=== PATIENT | male | born 1970 | race Caucasian/White ===

== ENCOUNTER 2016-12-13 09:01 | Inpatient (IN) | payer MEDICAID ==
[~2016-12-13] VITALS: Ht 177.8 cm; Wt 87.3 kg
[2016-12-13 10:42] LABS: BASOPHILS # (AUTO) 0.03 K/uL (0.00-0.20); BASOPHILS % (AUTO) 0.5 % (0.0-2.0); EOSINOPHILS # (AUTO) 0.82 K/uL (0.00-0.70); EOSINOPHILS % (AUTO) 11.49 % (1.0-6.0); HEMOGLOBIN 13.7 g/dL (13.5-17.5); LYMPHOCYTES # (AUTO) 2.3 K/uL (1.0-4.8); MEAN CORPUSCULAR HGB CONC 33.5 G/dL (31.0-37.0); MEAN CORPUSCULAR VOLUME 93 fL (80-100); MONOCYTES # (AUTO) 0.8 K/uL (0.1-1.0); MONOCYTES % (AUTO) 11.5 % (2.0-9.0); NEUTROPHILS # (AUTO) 3.2 K/uL (1.8-7.7); NEUTROPHILS % (AUTO) 44.6 % (40.0-70.0); PLATELET COUNT (AUTO) 191 K/uL (150-450); RED BLOOD CELL COUNT(AUTO) 4.43 MIL/uL (4.50-5.90); WHITE BLOOD COUNT (AUTO) 7.1 K/uL (4.5-11.0)
[2016-12-13 10:52] LABS: ANION GAP 8 mmol/L (8-16); CALCIUM, TOTAL 8.1 mg/dL (8.8-10.5); CARBON DIOXIDE 28 mmol/L (22-29); CHLORIDE 105 mmol/L (98-107); CREATININE 1.04 mg/dL (0.60-1.30); GLOMERULAR FILTR. RATE CALC > 60 mL/min (>60); POTASSIUM 3.3 mmol/L (3.5-5.1); SODIUM SERUM 141 mmol/L (136-145); UREA NITROGEN, BLOOD 16 mg/dL (7-18)
[2016-12-13 10:54] LABS: PROTHROMBIN TIME 10.6 SEC (9.4-11.6)
[2016-12-13 11:17] LABS: ALANINE AMINOTRANSFERASE 16 U/L (12-78); ALBUMIN 3.5 g/dL (3.4-5.0); ASPARTATE AMINOTRANSFERASE 19 U/L (15-37); BILIRUBIN,TOTAL 0.4 mg/dL (0.1-1.0); CREATINE KINASE MB 3.9 ng/mL (0-5); CREATINE KINASE, TOTAL 326 U/L (39-308); TOTAL PROTEIN, SERUM 6.8 g/dL (6.4-8.2)
[2016-12-13] MEDS ORDERED: IOVERSOL 350 MG/ML 100 ML VIAL ONE (12:02)
[2016-12-13] MEDS ORDERED: SODIUM CHLORIDE 0.9% 100 ML ONE (12:02)
[2016-12-13] MEDS ORDERED: ACETAMINOPHEN 325 MG TABLET PO PRN ×2 (14:45→21:15)
[2016-12-13] MEDS ORDERED: 0.9% SODIUM CHLORIDE 10 ML SYRINGE IVP PRN (14:45)
[2016-12-13] MEDS ORDERED: ONDANSETRON HCL 4 MG/2 ML VIAL IVP PRN (14:45)
[2016-12-13 17:17] VITALS: BP 121/74
[2016-12-13 17:47] LABS: GLUCOSE,POINT OF CARE 92 MG/DL (70-110)
[2016-12-13 19:18] VITALS: BP 125/74
[2016-12-13] MEDS ORDERED: SIMVASTATIN 20 MG TABLET PO SCH (21:15)
[2016-12-13] MEDS ORDERED: MAGNESIUM HYDROXIDE SUSPENSION 30 ML UDCUP PO PRN (21:15)
[2016-12-13] MEDS ORDERED: ASPIRIN 81 MG CHEWABLE TABLET PO SCH (21:15)
[2016-12-13] MEDS ORDERED: POTASSIUM CHL 10 MEQ/WATER 50 ML IV PRN (21:30)
[2016-12-13] MEDS ORDERED: POTASSIUM CHLORIDE 20 MEQ ER TABLET PO PRN (21:30)
[2016-12-13 23:24] VITALS: BP 136/85
[2016-12-14 05:09] VITALS: BP 128/82
[2016-12-14 06:05] LABS: BASOPHILS # (AUTO) 0.03 K/uL (0.00-0.20); BASOPHILS % (AUTO) 0.3 % (0.0-2.0); EOSINOPHILS # (AUTO) 0.94 K/uL (0.00-0.70); EOSINOPHILS % (AUTO) 7.65 % (1.0-6.0); HEMATOCRIT 43.5 % (41-53); HEMOGLOBIN 14.6 g/dL (13.5-17.5); LYMPHOCYTES # (AUTO) 1.4 K/uL (1.0-4.8); LYMPHOCYTES % (AUTO) 11.3 % (22.0-44.0); MEAN CORPUSCULAR HEMOGLOBIN 31.1 pg (26.0-34.0); MEAN CORPUSCULAR HGB CONC 33.5 G/dL (31.0-37.0); MEAN CORPUSCULAR VOLUME 93 fL (80-100); MONOCYTES # (AUTO) 0.7 K/uL (0.1-1.0); MONOCYTES % (AUTO) 5.8 % (2.0-9.0); NEUTROPHILS # (AUTO) 9.2 K/uL (1.8-7.7); NEUTROPHILS % (AUTO) 74.9 % (40.0-70.0); PLATELET COUNT (AUTO) 201 K/uL (150-450); RED BLOOD CELL COUNT(AUTO) 4.69 MIL/uL (4.50-5.90); RED CELL DISTRIBUTION WIDTH 15.2 % (11.5-14.5); WHITE BLOOD COUNT (AUTO) 12.3 K/uL (4.5-11.0)
[2016-12-14 07:12] LABS: ALANINE AMINOTRANSFERASE 14 U/L (12-78); ALBUMIN 3.3 g/dL (3.4-5.0); ANION GAP 7 mmol/L (8-16); ASPARTATE AMINOTRANSFERASE 14 U/L (15-37); BILIRUBIN,TOTAL 0.5 mg/dL (0.1-1.0); CALCIUM, TOTAL 8.5 mg/dL (8.8-10.5); CARBON DIOXIDE 28 mmol/L (22-29); CHLORIDE 104 mmol/L (98-107); CHOL/HDL RATIO 5.9 (4.2-7.3); CREATININE 0.93 mg/dL (0.60-1.30); GLOMERULAR FILTR. RATE CALC > 60 mL/min (>60); POTASSIUM 3.9 mmol/L (3.5-5.1); SODIUM SERUM 139 mmol/L (136-145); THYROID STIMULATING HORMONE 1.28 uIU/mL (0.36-3.74); TOTAL PROTEIN, SERUM 6.8 g/dL (6.4-8.2); UREA NITROGEN, BLOOD 11 mg/dL (7-18)
[2016-12-14 07:26] VITALS: BP 137/81
[2016-12-14 08:08] LABS: APPEARANCE,URINE CLEAR (CLEAR); GLUCOSE, URINE (UA) NEGATIVE (NEGATIVE); KETONES,URINE NEGATIVE (NEGATIVE); LEUKOCYTE ESTERASE ,URINE NEGATIVE (NEGATIVE); OCCULT BLOOD,URINE NEGATIVE (NEGATIVE); PROTEIN,URINE NEGATIVE (NEGATIVE)
[2016-12-14 08:09] LABS: ADD UA MICROSCOPIC NO
[2016-12-14] MEDS ORDERED: DOCUSATE SODIUM 100 MG CAPSULE PO SCH (09:00)
[2016-12-14] MEDS ORDERED: PANTOPRAZOLE SODIUM 40 MG DR TABLET PO SCH (09:00)
[2016-12-14 11:03] VITALS: BP 130/78
[2016-12-14 16:04] VITALS: BP 140/77
== END 2016-12-14 17:30 | disposition home or self-care (01) | DRG 47 ==
LOC: EMS 09:03 → 6N 16:04
PROVIDERS: ADMIT Internal Medicine; ATTEND Internal Medicine
DX: G45.9 Transient cerebral ischemic attack, unspecified (principal); I10 Essential (primary) hypertension; F15.99 Other stimulant use, unspecified with unspecified stimulant-induced disorder; F15.90 Other stimulant use, unspecified, uncomplicated; D72.829 Elevated white blood cell count, unspecified; F19.10 Other psychoactive substance abuse, uncomplicated; E66.9 Obesity, unspecified; F17.210 Nicotine dependence, cigarettes, uncomplicated; R53.1 Weakness; Z85.47 Personal history of malignant neoplasm of testis; Z90.79 Acquired absence of other genital organ(s); Z91.19 Patient's noncompliance with other medical treatment and regimen; Z92.3 Personal history of irradiation; Z71.51 Drug abuse counseling and surveillance of drug abuser; Z79.82 Long term (current) use of aspirin; Z79.899 Other long term (current) drug therapy; Z71.6 Tobacco abuse counseling; Z68.27 Body mass index [BMI] 27.0-27.9, adult
CPT/HCPCS: 70450; 70496; 70551; 80307; 82105; 82962; 84443; 93005; 97161; 99285; J7050

== ENCOUNTER 2018-01-21 16:40 | Emergency (ER) | payer SELFPAY ==
[~2018-01-21] VITALS: Ht 177.8 cm; Wt 100.0 kg
[2018-01-21 18:03] LABS: BASOPHILS % (AUTO) 0.9 % (0.0-2.0); HEMATOCRIT 46.2 % (41-53); HEMOGLOBIN 16.2 g/dL (13.5-17.5); LYMPHOCYTES % (AUTO) 27.8 % (22.0-44.0); MEAN CORPUSCULAR VOLUME 92 fL (80-100); MONOCYTES # (AUTO) 1.1 K/uL (0.1-1.0); MONOCYTES % (AUTO) 9.9 % (2.0-9.0); NEUTROPHILS # (AUTO) 6.2 K/uL (1.8-7.7); NEUTROPHILS % (AUTO) 57.4 % (40.0-70.0); PLATELET COUNT (AUTO) 278 K/uL (150-450); RED BLOOD CELL COUNT(AUTO) 5.05 MIL/uL (4.50-5.90); RED CELL DISTRIBUTION WIDTH 14.4 % (11.5-14.5)
[2018-01-21 18:13] LABS: ANION GAP 11 mmol/L (8-16); CARBON DIOXIDE 25 mmol/L (22-29); CHLORIDE 102 mmol/L (98-107); CREATININE 0.92 mg/dL (0.60-1.30); GLOMERULAR FILTR. RATE CALC > 60 mL/min (>60); GLUCOSE,RANDOM 93 mg/dL (70-110); POTASSIUM 3.7 mmol/L (3.5-5.1); SODIUM SERUM 138 mmol/L (136-145); UREA NITROGEN, BLOOD 13 mg/dL (7-18)
[2018-01-21 18:19] LABS: ALANINE AMINOTRANSFERASE 22 U/L (12-78); ALBUMIN 3.7 g/dL (3.4-5.0); ALKALINE PHOSPHATASE 93 U/L (46-116); ASPARTATE AMINOTRANSFERASE 19 U/L (15-37); BILIRUBIN,TOTAL 0.2 mg/dL (0.1-1.0); LIPASE 116 U/L (73-393); TOTAL PROTEIN, SERUM 7.6 g/dL (6.4-8.2)
[2018-01-21 23:23] VITALS: BP 124/68
== END 2018-01-21 23:32 | disposition home or self-care (01) ==
LOC: EMS 16:43
DX: R07.9 Chest pain, unspecified (principal); F17.210 Nicotine dependence, cigarettes, uncomplicated; I10 Essential (primary) hypertension
CPT/HCPCS: 93005; 99285